=== PATIENT | female | born 1995 | race Caucasian/White ===

== ENCOUNTER 2019-10-22 02:29 | Emergency (ER) | payer SELFPAY ==
[~2019-10-22] VITALS: Ht 162.6 cm; Wt 63.5 kg
[2019-10-22 02:45] VITALS: BP 122/69
--- NOTE | 2019-10-22 02:48 | NUR ---
TO LOBBY A/W BED AMBULATORY
[2019-10-22 03:20] VITALS: BP 122/69
--- NOTE | 2019-10-22 03:20 | NUR ---
PT CALLED FROM [facility], NO ANSWER, LWBS
--- NOTE | 2019-10-22 03:20 | NUR ---
PATIENT LEFT WITHOUT BEING SEEN BY DR. CUEVAS. NO FURTHER CARE PROVIDED FOR PATIENT.
--- NOTE | 2019-10-22 05:13 | NUR ---
PT CALLED FROM [facility], NO ANSWER, LWBS
== END 2019-10-22 03:20 | disposition left against medical advice (07) ==
LOC: MED 02:29
DX: R07.89 Other chest pain (principal); Z53.21 Procedure and treatment not carried out due to patient leaving prior to being seen by health care provider